=== PATIENT | male | born 1950 | race Caucasian/White ===

== ENCOUNTER 2021-02-09 17:08 | Emergency (ER) | payer MEDICARE, SELFPAY ==
--- NOTE | 2021-02-09 17:14 | ED.MALEGU ---
HPI - Male Genitourinary General Chief complaint: Urogenital-Male Stated complaint: frequent urination dry mouth Time Seen by Provider: 02/09/21 17:14 Source: patient and RN notes reviewed History of Present Illness HPI Narrative: Patient is a 70-year-old male who presents the urgent care with complaints of increased urination and dry mouth. Patient also reports of excessive thirst. States his symptoms started at least 1 week ago. Patient was recently [facility] to the [facility] due to suicide attempt. Patient has been on many psychiatric medications since then for the last 6 or 8 weeks and states that his psychiatrist told him he may develop dry mouth . Patient states that he has been increasing his soda intake because it is the only thing that clenches his thirst . Patient denies of any nausea, vomiting, abdominal pain. States that he has had some noticeable larger belly . Also reports of slight right flank pains. Denies of any blood in the urine. Denies of any dizziness or fatigue. Patient also reports that he has recently seen a urologist and placed on ciprofloxacin. Patient states I do not remember while I was at the urologist and I am not sure why I took the ciprofloxacin . No other acute complaints. No acute distress noted. Patient aware of the plan of care. Some parts of this dictation were generated by voice recognition software and may contain typographical and/or grammatical inaccuracies. Related Data Home Medications Medication Instructions Recorded Confirmed lithium carbonate 150 mg PO HS 02/09/21 02/09/21 lithium carbonate 450 mg PO TID 02/09/21 02/09/21 loratadine 10 mg PO DAILY 02/09/21 02/09/21 olanzapine 2.5 mg PO DAILY 02/09/21 02/09/21 olanzapine 10 mg PO HS 02/09/21 02/09/21 pantoprazole 40 mg PO DAILY 02/09/21 02/09/21 tamsulosin 4 mg PO DAILY 02/09/21 02/09/21 Allergies Allergy/AdvReac Type Severity Reaction Status Date / Time cephalexin [From Keflex] AdvReac Other Verified 02/09/21 17:28 Review of Systems Review of Systems: Narrative: CONSTITUTIONAL: Denies fever, chills, or sweats. Reports of dry mouth EYES: Denies visual changes, redness, or discharge. ENT: Denies rhinorrhea, congestion, sore throat, or otalgia. CARDIOVASCULAR: Denies chest pain, palpitations, or edema. RESPIRATORY: Denies cough or dyspnea. GASTROINTESTINAL: Denies abdominal pain, nausea, vomiting, or diarrhea. GENITOURINARY: Reports of frequent urination SKIN: Denies rash or itching. MUSCULOSKELETAL: Denies back pain, joint pain, or myalgia. NEUROLOGIC: Denies headache, numbness, or weakness. All other systems reviewed are negative, except as documented in HPI. PMFSH Comments At the time of my signature, I reviewed and agree with the nursing past medical, surgical, social, and family history. There is no relevant family history pertinent to the patient complaint. Exam Narrative: Exam Narrative: GENERAL: This is a well-nourished, well-developed patient, in no apparent distress. HEAD: normocephalic, atraumatic. EYES: PERRL. Sclera clear/white. Vision is grossly intact. EARS: External ears normal NOSE: External nose normal with no obvious nasal discharge, nares without redness, no rhinorrhea. THROAT: Mucous membranes moist NECK: Neck supple CARDIOVASCULAR: Regular rate and rhythm without murmurs, gallops, or rubs. RESPIRATORY: Clear to auscultation. Breath sounds equal bilaterally. No wheezes, rales, or rhonchi. GASTROINTESTINAL: Abdomen soft, non-tender, mild abdominal distention. Bowel sounds are active. SKIN: warm, intact with no suspicious lesions or rash, good texture and turgor. NEURO: awake, alert, and oriented to person, place and time. There were no obvious focal neurologic abnormalities. EXTREMITIES: No clubbing, cyanosis, or edema. BACK: Mild right CVA tenderness Course Vital Signs Vital signs: Vital Signs Temperature 97 F L 02/09/21 17:20 Pulse Rate 96 02/09/21 17:20 Respiratory Ra
[2021-02-09 17:20] VITALS: BP 135/81; PULSE 96; RESP 20; TEMP 36.1; O2SAT 100
[2021-02-09 17:33] VITALS: BP 135/81; PULSE 96; RESP 20; TEMP 36.1; O2SAT 100
[2021-02-09 17:37] LABS: Glucose Point of Care > 500 (65-105)
--- NOTE | 2021-02-09 20:10 | PC.NURSE ---
NO UC ORDERED PER PROVIDER
== END 2021-02-09 17:44 | disposition short-term general hospital (02) ==
PROVIDERS: Emergency Provider Nurse Practitioner Family; PCP Family Medicine
DX: R35.0 Frequency of micturition (principal); R73.9 Hyperglycemia, unspecified; R63.1 Polydipsia
CPT/HCPCS: 81003; 82948; 99212; G0463